=== PATIENT | male | born 1940 | race Caucasian/White ===

== ENCOUNTER 2016-08-04 09:55 | Day surgery (SDC) | payer MEDICARE, BC ==
[~2016-08-04] VITALS: Ht 180.3 cm; Wt 69.4 kg
[~2016-08-04 09:55] MED LIST: 00186-0372-20 IH; ALBUTEROL0.83 MG/ML IH; ALEVE 220MG220 MG PO; ALTACE 10MG TAB10 MG PO; ASPIRIN E.C. 8181 MG PO; BACTRIM DS 8001 TAB PO; BYSTOLIC10 MG PO; CARDIZEM 60MG T60 MG PO; CARDIZEM 90MG T90 MG PO; CIPRO 500MG TA500 MG PO; CLONAZEPAM1 M1 PO; COMBIVENT INH14.7 GM IH; DALIRESP500 MCG PO; DIGITEK0.125 MG PO; FLOMAX 0.40.4 MG/CAP PO; IBUPROFEN200 M1 PO; LASIX 20MG TABL20 MG PO; LEVAQUIN 750MG750 M1 PO; LIPITOR 80MG80 MG PO; LIPITOR20 MG PO; MOTRIN 200200 MG/TAB PO; MUCINEX 60600 MG/TA1; MUCINEX600 M1 PO; MULTIPLE VITAMI1 CAP PO; OSTEO-BI-FLEX 21 TAB PO; PLAVIX 75MG TAB75 MG PO; PREDNISONE20 MG PO; PROAIR HFA0.09 MG/AC IH; SPIRIVA18 MCG IH; THEO-DUR 3300 MG/TAB PO; THEOCAP200 MG PO; TRANDATE300 MG PO; TYLENOL 325MG325 MG PO; VITAMIN B650 MG PO; XARELTO10 MG PO; ZANTAC 150MG T150 MG PO
[2016-08-04 11:19] VITALS: BP 151/98; PULSE 66; TEMP 97.9
[2016-08-04] MEDS ORDERED: MUCINEX 60600 MG/TA1 PO (11:35)
[2016-08-04] MEDS ORDERED: SPIRIVA RE2.5 MCG/Ac IH (11:38)
[2016-08-04] MEDS ORDERED: ALBUTEROL0.83 MG/ML IH (11:42)
[2016-08-04] MEDS ORDERED: BROVANA15 MCG/2 M IH (11:42)
[2016-08-04] MEDS ORDERED: ATROVENT I0.2 MG/1 M IH (11:42)
[2016-08-04] MEDS ORDERED: PULMICORT0.5 MG/2 M IH (11:43)
[2016-08-04] MEDS ORDERED: KLONOPIN 0.5MG0.5 MG PO (11:44)
[2016-08-04] MEDS ORDERED: BENADRYL25 M2 PO (11:45)
[2016-08-04] MEDS ORDERED: TYLENOL 500MG500 MG PO (11:45)
[2016-08-04 13:20] VITALS: BP 115/68; PULSE 58; TEMP 98
[2016-08-04 13:35] VITALS: BP 105/58; PULSE 60
[2016-08-04 13:50] VITALS: BP 130/65; PULSE 53
[2016-08-04 14:05] VITALS: BP 119/70; PULSE 56
== END 2016-08-04 15:20 | disposition home or self-care (01) ==
LOC: SDCO 09:55
DX: K21.0 Gastro-esophageal reflux disease with esophagitis (principal); K29.80 Duodenitis without bleeding; D12.2 Benign neoplasm of ascending colon; D12.5 Benign neoplasm of sigmoid colon; K55.20 Angiodysplasia of colon without hemorrhage; K57.30 Diverticulosis of large intestine without perforation or abscess without bleeding; R19.5 Other fecal abnormalities; E78.00 Pure hypercholesterolemia, unspecified; Z79.899 Other long term (current) drug therapy; Z79.02 Long term (current) use of antithrombotics/antiplatelets; Z79.82 Long term (current) use of aspirin
CPT/HCPCS: J2250; J3010; J7030

== ENCOUNTER 2018-07-18 19:30 | Inpatient (IN) | payer MEDICARE, BC ==
[~2018-07-18] VITALS: Ht 182.9 cm; Wt 67.1 kg
[~2018-07-18 19:30] MED LIST changes: +ATROVENT I0.2 MG/1 M IH; +BENADRYL25 M2 PO; +BROVANA15 MCG/2 M IH; +COMBIRESP IH; +KLONOPIN 0.5MG0.5 MG PO; +MUCINEX 60600 MG/TA1 PO; +PULMICORT0.5 MG/2 M IH; +SPIRIVA RE2.5 MCG/Ac IH; +TYLENOL 500MG500 MG PO
[2018-07-18 20:03] VITALS: BP 142/77; PULSE 69; TEMP 97.9
--- NOTE | 2018-07-18 23:19 | NUR ---
Completed assessment and admission on patient; PT denies pain or SOB at time of assessment. Minor skin issues found on right landaverde from unknown healing scab. PT A&Ox3, lung CTA with bilateral diminished bases; baseline 3L of O2 via NC. SBA for toileting; PT utilizing urinal per preference. 20G RFA IV saline locked. Last BM reported as 07/17/2018. PT denied need for medication tonight, as he stated that he believes that the medication was already administered prior to arrival. TELE in place on patient; HX: Rate control AFib, COPD, HTN, anxiety, stent placement (coronary and iliac); Heart cath scheduled for 07/19/2018 at unknown time. PT denies pain or further concerns at time of exit. Call light placed within reach in bed; Will continue to monitor. CDA
[2018-07-19] VITALS (16 sets, daily range): BP systolic 126–158; BP diastolic 53–87; PULSE 56–70; TEMP 97.4–98.5
[2018-07-19 06:12] LABS: BASO % 0.1 % (0.0-2.0); GRAN # 11.7 (1.4-6.5); GRAN % 89.4 % (42.2-75.2); HEMATOCRIT 42.6 % (42.0-52.0); HEMOGLOBIN 13.4 g/dl (13.5-18.0); LYMPH # 0.3 (1.2-3.4); LYMPH % 2.6 % (20.0-51.0); MEAN CELL VOLUME 88 fl (80.0-100.0); MEAN CORPUSCULAR HEMOGLOBIN 28 pg (27.0-31.0); MEAN CORPUSCULAR HGB CONC 32 g/dl (33.0-37.0); MEAN PLATELET VOLUME 9.3 fl (7.4-10.4); MONO % 7.4 % (1.7-9.3); PLATELET COUNT 294 K/mm3 (130-400); RED BLOOD COUNT 4.84 M/mm3 (4.20-5.60); REDCELL DISTRIBUTION WIDTH-CV 15.7 % (11.5-14.5)
[2018-07-19 06:22] LABS: CALCIUM 8.5 mg/dL (8.4-10.2); CREATININE, serum 1.12 mg/dL (0.66-1.25); POTASSIUM 4.7 mmol/L (3.4-5.0)
[2018-07-19 06:29] LABS: THEOPHYLLINE 14.4 ug/mL (10.0-20.0)
[2018-07-19 06:43] LABS: TROPONIN-I 0.165 ng/mL (0.000-0.034)
[2018-07-19 06:44] LABS: DIGOXIN 1.1 ng/mL (0.8-2.0)
--- NOTE | 2018-07-19 07:12 | NUR ---
PT tolerated medications and treatments well; PT denied further needs; PT planned for heart cath in AM; Call light placed within reach; Report given to GINA Sneed.
--- NOTE | 2018-07-19 07:30 | NUR ---
Assessment complete. Pt is AXO X3, denies having any pain at this time. Breathing is even and unlabored on 3L via NC. Tele on. LF INT flushes easily, remains free of complications, and is CDI. Pt is NPO for heart catheterization today. Pt is sitting up in the bed resting quietly at this time and he denies further needs. Call light within reach, will continue to monitor.
--- NOTE | 2018-07-19 08:55 | NUR ---
ALL MEDS GIVEN WITH VERBAL ORDER FROM MD. SEE MERGE FOR ADMIN TIMES. ALLENS TEST POSITIVE.
--- NOTE | 2018-07-19 12:40 | NUR ---
First visit from the commuter pilot. No needs right now.
--- NOTE | 2018-07-19 13:21 | NUR ---
SW and SW student attended clinical rounding and met with patient to discuss discharge planning. Patient lives with his and daughter in [place]. 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 Patient has home 02 but doesn't use it consistently. Patient could possibly dc home today with no unmet discharge needs.
[2018-07-19] MEDS ORDERED: MEDROL 4MG DOSPA4 MG PO (16:45)
[2018-07-19] MEDS ORDERED: CORDARONE200 MG/TAB PO (16:46)
[2018-07-19] MEDS ORDERED: ELIQUIS 5MG PO (16:46)
[2018-07-19] MEDS ORDERED: RANEXA 500MG T500 MG PO (16:46)
[2018-07-19] MEDS ORDERED: IMDUR 30MG30 MG/TAB PO (16:47)
[2018-07-19] MEDS ORDERED: CRESTOR 10MG10 MG PO (16:48)
--- NOTE | 2018-07-19 18:50 | NUR ---
Pt discharged at this time. LF INT discontinued with the catheter tip intact. R radial cath site has remained free of complications. Education provided and reviewed. Pt and his both verbalize understanding. Pt escourted out via WC with tech. Marcia
== END 2018-07-19 18:58 | disposition home or self-care (01) | DRG 281 ==
LOC: MEDICAL 19:30
PROVIDERS: Nurse Practitioner; ADMIT Internal Medicine Cardiovascular Disease
PROC: B2111ZZ Fluoroscopy of Multiple Coronary Arteries using Low Osmolar Contrast (ICD-10-PCS; principal; 2018-07-19)
PROC: B2151ZZ Fluoroscopy of Left Heart using Low Osmolar Contrast (ICD-10-PCS; 2018-07-19)
PROC: 4A023N7 Measurement of Cardiac Sampling and Pressure, Left Heart, Percutaneous Approach (ICD-10-PCS; 2018-07-19)
DX: I21.4 Non-ST elevation (NSTEMI) myocardial infarction (principal); I50.22 Chronic systolic (congestive) heart failure; I25.10 Atherosclerotic heart disease of native coronary artery without angina pectoris; I11.0 Hypertensive heart disease with heart failure; J44.9 Chronic obstructive pulmonary disease, unspecified; E78.5 Hyperlipidemia, unspecified; Z95.5 Presence of coronary angioplasty implant and graft; I73.9 Peripheral vascular disease, unspecified; Z95.820 Peripheral vascular angioplasty status with implants and grafts; I48.91 Unspecified atrial fibrillation; D50.9 Iron deficiency anemia, unspecified; F17.210 Nicotine dependence, cigarettes, uncomplicated
CPT/HCPCS: A4216; G0378; J0696; J1644; J2060; J2920; J3010; J7050; Q9967

== ENCOUNTER → 2018-08-07 | Outpatient (CLI) | payer MEDICARE, BC ==
[~2018-08-07] MED LIST changes: +CORDARONE200 MG/TAB PO; +CRESTOR 10MG10 MG PO; +ELIQUIS 5MG PO; +IMDUR 30MG30 MG/TAB PO; +MEDROL 4MG DOSPA4 MG PO; +RANEXA 500MG T500 MG PO
== END ==
LOC: COL.RAD 13:44
DX: I73.9 Peripheral vascular disease, unspecified (principal); I71.4 Abdominal aortic aneurysm, without rupture; I74.5 Embolism and thrombosis of iliac artery; I74.3 Embolism and thrombosis of arteries of the lower extremities; Z95.820 Peripheral vascular angioplasty status with implants and grafts
CPT/HCPCS: Q9967

== ENCOUNTER 2018-11-15 10:18 | Day surgery (SDC) | payer MEDICARE, BC ==
[~2018-11-15] VITALS: Ht 182.9 cm; Wt 66.4 kg
[2018-11-15 10:43] VITALS: BP 101/68; PULSE 73; TEMP 97.6
[2018-11-15] MEDS ORDERED: PROSCAR 5MG5 MG PO (11:19)
[2018-11-15] MEDS ORDERED: ASPIRIN 81M81 MG/TA2 PO (11:19)
[2018-11-15] MEDS ORDERED: BROVANA15 MCG/2 M IH (11:20)
[2018-11-15] MEDS ORDERED: TOPROL XL 25MG25 MG PO (11:20)
[2018-11-15] MEDS ORDERED: LASIX 20MG TABL20 MG PO (11:20)
[2018-11-15 12:35] VITALS: BP 95/52; PULSE 70; TEMP 97.3
--- NOTE | 2018-11-15 12:35 | NUR ---
Pt arrived to room 8 from Endo procedure. Pt drowsy, orientedx3. Pt walked to chair with x2 assist, unsteady gait. Pt's family in room. Pt denies any pain or nausea. Food and drink offered. Pt refuses at this time. Call light in reach.
[2018-11-15 12:50] VITALS: BP 107/90; PULSE 70
[2018-11-15 13:05] VITALS: BP 120/65; PULSE 68
[2018-11-15 13:20] VITALS: BP 122/65; PULSE 62
--- NOTE | 2018-11-15 13:50 | NUR ---
Discussed discharge instructions, med list and procedure information with pt and pt's . Answered all questions to pt's satisfaction. Will send Dr Melgar's office a copy of the EGD and colonoscopy report per pt request. Pt signed discharged paperwork.
--- NOTE | 2018-11-15 14:00 | NUR ---
Pt discharged from [facility]. Pt left unit via wheelchair to private vehicle driven by spouse.
[2018-11-15 14:13] VITALS: BP 107/53; PULSE 65
== END 2018-11-15 14:00 | disposition home or self-care (01) ==
LOC: SDCO 10:18
DX: K22.70 Barrett's esophagus without dysplasia (principal); K63.5 Polyp of colon; D50.9 Iron deficiency anemia, unspecified; K21.9 Gastro-esophageal reflux disease without esophagitis; D64.9 Anemia, unspecified; F41.9 Anxiety disorder, unspecified; F32.9 Major depressive disorder, single episode, unspecified; E78.00 Pure hypercholesterolemia, unspecified; K92.1 Melena; I25.10 Atherosclerotic heart disease of native coronary artery without angina pectoris; I25.2 Old myocardial infarction; I10 Essential (primary) hypertension; J44.9 Chronic obstructive pulmonary disease, unspecified; I48.91 Unspecified atrial fibrillation; M19.90 Unspecified osteoarthritis, unspecified site; G89.29 Other chronic pain; Z86.010 Personal history of colon polyps; Z79.82 Long term (current) use of aspirin; Z87.891 Personal history of nicotine dependence; Z88.5 Allergy status to narcotic agent; Z88.6 Allergy status to analgesic agent; Z88.1 Allergy status to other antibiotic agents; Z88.8 Allergy status to other drugs, medicaments and biological substances; Z98.52 Vasectomy status; Z79.01 Long term (current) use of anticoagulants; Z99.81 Dependence on supplemental oxygen
CPT/HCPCS: J2250; J2704; J7030

== ENCOUNTER 2019-02-27 08:55 | Outpatient (CLI) | payer MEDICARE, BC ==
[~2019-02-27] VITALS: Ht 182.9 cm; Wt 66.1 kg
[2019-02-27] VITALS (16 sets, daily range): BP systolic 131–170; BP diastolic 72–92; PULSE 72–103; TEMP 98
[~2019-02-27 08:55] MED LIST changes: +ASPIRIN 81M81 MG/TA2 PO; +PACERONE200 MG PO; +PROSCAR 5MG5 MG PO; +PROTONIX 40MG T40 MG PO; +TOPROL XL 25MG25 MG PO
--- NOTE | 2019-02-27 10:30 | NUR ---
pt to ct per wheelchair. Pt positioned prone on table. Monitors applied and O2 on at 3l/nc.
--- NOTE | 2019-02-27 10:40 | NUR ---
Dr Luevano into room and talks with pt regarding procedure.
--- NOTE | 2019-02-27 10:51 | NUR ---
Specimen obtained by Dr Luevano and placed in formalin. Specimen labeled.
--- NOTE | 2019-02-27 11:10 | NUR ---
Transferred from Radiology by cart. Alert and oriented. Bandaid to right back CD&I. VSS. O2 at 97 % on 3 liters via nasal cannula
--- NOTE | 2019-02-27 13:46 | NUR ---
Dr. Luevano ok to discharge
--- NOTE | 2019-02-27 13:50 | NUR ---
INT discontinued intact. Dr. Luevano in to give discharge instructions.
--- NOTE | 2019-02-27 14:05 | NUR ---
Transferred to private car by priti
== END 2019-02-27 14:05 | disposition home or self-care (01) ==
LOC: COL.RAD 08:55
DX: R91.1 Solitary pulmonary nodule (principal)
CPT/HCPCS: J2250; J3010

== ENCOUNTER 2019-07-03 09:01 | Outpatient (RCR) | payer MEDICARE, BC ==
[~2019-07-03] VITALS: Ht 182.9 cm; Wt 65.7 kg
[2019-07-03] MEDS ORDERED: ELIQUIS 5MG PO (09:44)
[2019-07-03 09:45] VITALS: BP 98/44; PULSE 58; TEMP 98
[2019-07-03] MEDS ORDERED: TYLENOL 500MG500 MG PO (10:10)
[2019-07-03 10:21] VITALS: BP 88/38; PULSE 55; TEMP 98.3
[2019-07-03 10:44] VITALS: BP 84/34; PULSE 56; TEMP 98.4
[2019-07-03 10:59] VITALS: BP 88/38; PULSE 55; TEMP 97.5
[2019-07-03 11:30] VITALS: BP 99/45; PULSE 61; TEMP 98.3
[2019-07-03 12:20] VITALS: BP 89/53; PULSE 62; TEMP 98
== END 2019-07-03 13:30 | disposition home or self-care (01) ==
LOC: EUO 09:01
DX: Z01.89 Encounter for other specified special examinations (principal)
CPT/HCPCS: J7050; P9016

== ENCOUNTER 2019-08-12 12:18 | Inpatient (IN) | payer MEDICARE, BC ==
[~2019-08-12] VITALS: Ht 182.9 cm; Wt 54.9 kg
[2019-08-12 13:03] LABS: BASO % 0.4 % (0.0-2.0); EOS # 0.1 (0.0-0.7); EOS % 1.5 % (0-4.0); GRAN # 5.7 (1.4-6.5); GRAN % 78.3 % (42.2-75.2); HEMATOCRIT 27.1 % (42.0-52.0); HEMOGLOBIN 8.2 g/dl (13.5-18.0); LYMPH # 0.8 (1.2-3.4); LYMPH % 10.8 % (20.0-51.0); MEAN CELL VOLUME 88 fl (80.0-100.0); MEAN CORPUSCULAR HEMOGLOBIN 27 pg (27.0-31.0); MEAN CORPUSCULAR HGB CONC 30 g/dl (33.0-37.0); MONO # 0.6 (0.1-0.6); MONO % 8.4 % (1.7-9.3); PLATELET COUNT 434 K/mm3 (130-400); RED BLOOD COUNT 3.09 M/mm3 (4.20-5.60); REDCELL DISTRIBUTION WIDTH-CV 18.7 % (11.5-14.5)
[2019-08-12 13:10] LABS: ALBUMIN 3.6 gm/dL (3.5-5.0); BILIRUBIN,TOTAL 0.8 mg/dL (0.0-1.0); CREATININE, serum 1.84 (0.66-1.25); POTASSIUM 3.3 mmol/L (3.4-5.0); TOTAL PROTEIN 6.5 gm/dL (6.4-8.2)
[2019-08-12 14:05] LABS: INR 2.4 (0.8-3.0); PROTHROMBIN TIME 29.1 SECONDS (9.7-12.8)
[2019-08-12 17:29] VITALS: BP 132/50; PULSE 64; TEMP 97.8
[2019-08-12] MEDS ORDERED: LOPRESSOR 225 MG/TAB PO (19:24)
[2019-08-12 20:00] VITALS: BP 124/48; PULSE 88; TEMP 98.6
[2019-08-13] VITALS (13 sets, daily range): BP systolic 102–135; BP diastolic 43–56; PULSE 58–92; TEMP 97.7–98.3
--- NOTE | 2019-08-13 06:56 | NUR ---
Patient has been resting in bed this shift, no complaints of pain. Patient does have multiple bruises on all extremeties. Patient lung sounds are clear, but diminished. Patient complains of shortness of air on exertion. Patient's O2 sats had been 97% on room air, but patient reported he is on 3-4L of oxygen at home. Educated patient on use of oxygen with COPD history. Patient did not require any medication for nausea this shift. Patient was able to tolerate some juice and pudding.
[2019-08-13 08:00] LABS: BASO % 0.4 % (0.0-2.0); EOS # 0.2 (0.0-0.7); EOS % 4.3 % (0-4.0); GRAN # 3.4 (1.4-6.5); GRAN % 73.3 % (42.2-75.2); LYMPH # 0.5 (1.2-3.4); LYMPH % 10.2 % (20.0-51.0); MEAN CELL VOLUME 89 fl (80.0-100.0); MEAN CORPUSCULAR HGB CONC 30 g/dl (33.0-37.0); MEAN PLATELET VOLUME 9.4 fl (7.4-10.4); MONO # 0.5 (0.1-0.6); MONO % 10.7 % (1.7-9.3); PLATELET COUNT 348 K/mm3 (130-400); RED BLOOD COUNT 2.43 M/mm3 (4.20-5.60); REDCELL DISTRIBUTION WIDTH-CV 18.8 % (11.5-14.5)
[2019-08-13 08:09] LABS: ALBUMIN 2.6 gm/dL (3.5-5.0); BILIRUBIN,TOTAL 0.4 mg/dL (0.0-1.0); CREATININE, serum 1.52 (0.66-1.25); HEMATOCRIT 21.5 % (42.0-52.0); HEMOGLOBIN 6.5 g/dl (13.5-18.0); MAGNESIUM 1.9 mg/dL (1.6-2.3); MEAN CORPUSCULAR HEMOGLOBIN 27 pg (27.0-31.0); POTASSIUM 4.1 mmol/L (3.4-5.0)
--- NOTE | 2019-08-13 11:03 | NUR ---
RECEIVED MORNING REPORT ON THE PATIENT. VERIFYIED THE POTASSIUM AND THE PATIENT DOES NOT NEED IT REPLACED THIS MORNING. HGB WAS AT 6.5 AND THE PATIENT WILL RECIEVE A UNIT OF BLOOD AND THEN RECHECK BLOOD LEVELS. PATIENT IS NOT SHORT OF BREATH, NAUSEA, VOMITING, OR DIZZY. PATIENT IS HAVING A HARD TIME REMEMBERING "HEMOGLOBIN" AND "6.5" SO IT WAS WROTE DOWN FOR HIM. CALL LIGHT WITHIN REACH WELL HIS OTHER NEEDS
--- NOTE | 2019-08-13 12:03 | NUR ---
SW met with the patient to discuss discharge plan. The patient lives in [place] with his , Ella (ph#[phone]). He reports independence with ADLs and has a cane, walker, and home oxygen from [facility]. The patient's PCP is Dr. Victor Hugo Lassiter and he receives his medications at [facility] in [place]. He reports no difficulties obtaining his meds. The patient's advanced directives are in EMR. His DPOA-HC is his . The patient plans to return home with his upon discharge. PT/OT have been ordered. SW to continue to follow.
--- NOTE | 2019-08-13 16:01 | NUR ---
PATIENT IS RESTING IN BED AT THIS TIME. BLOOD TRANSFUSION WENT WELL WITH NO DIFFICULITIES. PATIENT HAS HIS PHONE AND WILL UPDATE HIS FAMILY FROM TIME TO TIME. PATIENT HAS NOT HAD ANY COMPLAINTS TODAY BESIDES BEING HOT AND THEN COLD AND JUST WANTING HIS BLANKETS REARRANGED. HE HAS BEEN STABLE TODAY.
--- NOTE | 2019-08-13 16:11 | NUR ---
IV ON THE LEFT FOREARM WAS DISCONTINUED BECAUSE OF BLOOD UNDER THE DRESSING AND CONTINUING TO LEAK. PATIENT TOLERATED IT FINE AND THE TIP WAS INTACT
--- NOTE | 2019-08-13 17:56 | NUR ---
PATIENT HAS HAD A GOOD DAY. HE DID RECIEVE A UNIT OF BLOOD. ONLY USED THE URINAL ONE TIME FOR ME THIS SHIFT. HGB WAS LOW SO IT WAS REPLACED WITH ONE UNIT OF BLOOD. POTASSIUM WAS OK SO IT WAS NOT REPLACED TODAY. IS AT BEDSIDE RIGHT NOW WITH THE PATIENT. HIS CURRENT IV IS IN HIS RIGHT FOREARM AND IT WORKING GREAT, I HAD GREAT BLOOD RETURN WITH IT. PATIENT DID DRINK A GLASS OF WATER TODAY AND ANOTHER WAS GIVEN TO HIM. VITALS HAVE BEEN STABLE TODAY WITH NO ISSUES. CALL LIGHT IS IN REACH.
--- NOTE | 2019-08-13 20:00 | NUR ---
Received report from GINA Fishman and GINA Krishna. Assessment complete. Family at bedside. Denies any pain, discomfort, or N/V at this time. Meds administered. IV to RF intact with fluids infusing, dressing CDI. On 1LO2 NC, SPo2 99%. Denies SOB. Urinal at bedside. Needs attended too. Call light within reach.
[2019-08-14 04:41] VITALS: BP 160/58; PULSE 60; TEMP 98.5
--- NOTE | 2019-08-14 06:14 | NUR ---
Pt made no complaints during this shift. Slept through the night. Meds administered. Call light within reach.
[2019-08-14 06:26] LABS: CALCIUM 7.9 mg/dL (8.4-10.2); CREATININE, serum 1.27 (0.66-1.25); POTASSIUM 4.3 mmol/L (3.4-5.0)
--- NOTE | 2019-08-14 07:08 | NUR ---
Report given to GINA Robbins.
[2019-08-14 07:57] VITALS: BP 144/63; PULSE 60; TEMP 98
--- NOTE | 2019-08-14 08:10 | NUR ---
Assessment charted. Patient A&Ox3. Reporting pain in abdomen 07/04. VSS1.5L NC O@, no reported SOB . IV CDI, fluids infusing. No further needs expressed from patient. Call light within reach
[2019-08-14 08:17] LABS: BASO % 0.4 % (0.0-2.0); EOS # 0.2 (0.0-0.7); EOS % 3.6 % (0-4.0); GRAN # 3.5 (1.4-6.5); GRAN % 71.3 % (42.2-75.2); LYMPH # 0.6 (1.2-3.4); LYMPH % 12.6 % (20.0-51.0); MEAN CELL VOLUME 88 fl (80.0-100.0); MEAN CORPUSCULAR HGB CONC 31 g/dl (33.0-37.0); MEAN PLATELET VOLUME 9.1 fl (7.4-10.4); MONO # 0.6 (0.1-0.6); MONO % 11.3 % (1.7-9.3); PLATELET COUNT 345 K/mm3 (130-400); RED BLOOD COUNT 2.75 M/mm3 (4.20-5.60); REDCELL DISTRIBUTION WIDTH-CV 18.7 % (11.5-14.5)
[2019-08-14 08:18] LABS: HEMATOCRIT 24.2 % (42.0-52.0); HEMOGLOBIN 7.5 g/dl (13.5-18.0); MEAN CORPUSCULAR HEMOGLOBIN 27 pg (27.0-31.0)
[2019-08-14] MEDS ORDERED: ELIQUIS 5MG PO (09:22)
--- NOTE | 2019-08-14 11:00 | NUR ---
SW met with the patient to review discharge plan and to discussed home health services. The patient reports that the plans to return home with his . He was not interested in any home health at this time. The patient is to discharge back home with his today, 08/14. No additional needs at this time.
[2019-08-14 12:16] VITALS: BP 119/54; PULSE 58; TEMP 98.3
--- NOTE | 2019-08-14 13:30 | NUR ---
Discharge paperwork reviewed with patient. Patient verbalized an understanding to follow doctors orders. IV removed, tip intact, gauze and coban covering. assisted patient into street clothes. Patient has portable O2 tank in car, refused O2 from room to vehicle. No further needs expressed from patient. Patient transfered by nursing staff to vehicle by wheelchair.
== END 2019-08-14 13:30 | disposition home or self-care (01) | DRG 682 ==
LOC: COL.ER 12:18 → MEDICAL 15:47
PROVIDERS: Family Medicine; Nurse Practitioner Family; Physician Assistant; ADMIT Hospitalist
DX: N17.9 Acute kidney failure, unspecified (principal); E43 Unspecified severe protein-calorie malnutrition; J96.11 Chronic respiratory failure with hypoxia; E87.2 Acidosis; E87.6 Hypokalemia; E86.0 Dehydration; J44.9 Chronic obstructive pulmonary disease, unspecified; R62.51 Failure to thrive (child); I48.91 Unspecified atrial fibrillation; D50.9 Iron deficiency anemia, unspecified; F32.9 Major depressive disorder, single episode, unspecified; I25.10 Atherosclerotic heart disease of native coronary artery without angina pectoris; D64.9 Anemia, unspecified; I71.4 Abdominal aortic aneurysm, without rupture; I73.9 Peripheral vascular disease, unspecified; G25.81 Restless legs syndrome; Z85.118 Personal history of other malignant neoplasm of bronchus and lung; Z79.02 Long term (current) use of antithrombotics/antiplatelets
CPT/HCPCS: 99222-AI; 99231-AI; 99239; J2405; J3480; J7030; P9016

== ENCOUNTER 2019-11-17 17:54 | Outpatient (CLI) | payer MEDICARE, BC ==
[~2019-11-17] VITALS: Ht 182.9 cm; Wt 50.0 kg
[~2019-11-17 17:54] MED LIST changes: +LOPRESSOR 225 MG/TAB PO
[2019-11-18] VITALS (10 sets, daily range): BP systolic 133–166; BP diastolic 56–70; PULSE 54–72; TEMP 98–98.7
== END 2019-11-18 12:15 | disposition home or self-care (01) ==
LOC: EUO 17:54 → ZCOL.LAB 17:54 → EUO 11-18 12:15
DX: C34.10 Malignant neoplasm of upper lobe, unspecified bronchus or lung (principal); D50.9 Iron deficiency anemia, unspecified
CPT/HCPCS: J7050; P9016

== ENCOUNTER → 2019-11-28 | Outpatient (CLI) | payer MEDICARE, BC ==
[2019-11-28 14:07] LABS: ARTERIAL BLD GAS O2 SATURATION 95.4 % (92-100); ARTERIAL BLD GAS TCO2 CT 26.8; ARTERIAL BLOOD GAS BASE EXCESS 1.1 (-2-2); ARTERIAL BLOOD GAS HCO3 25.5 meq/L (22-26); ARTERIAL BLOOD GAS PCO2 39.9 mmHg (35-45); ARTERIAL BLOOD GAS PO2 68.2 mmHg (80-100); ARTERIAL BLOOD GAS pH 7.42 (7.35-7.45)
== END ==
LOC: COL.PUL 11-20 13:00
PROVIDERS: Internal Medicine Pulmonary Disease
DX: R06.02 Shortness of breath (principal)

== ENCOUNTER → 2021-04-01 | Day surgery (SDC) | payer MEDICARE, BC ==
[~2021-04-01] VITALS: Ht 182.9 cm; Wt 70.0 kg
[~2021-04-01] MED LIST changes: +ENTRESTO 24 MG1 EACH PO
[2021-04-01 07:44] VITALS: BP 150/67; PULSE 80; TEMP 98
[2021-04-01 09:10] VITALS: BP 127/87; PULSE 85; TEMP 98
[2021-04-01 09:30] VITALS: BP 130/59; PULSE 85
--- NOTE | 2021-04-01 09:36 | NUR ---
PT UP TO THE BATHROOM AND PASSED URINE AND STOOL. PT ALERT AND ORIENTATED TO TO PLACE, NAME AND TIME. LUNGS CLEAR AND COARSE, DIMINISHED BASES. REQUIRES 2 PERSON ASSIST WHEN WALKING. HRR, BOWEL SOUNDS PRESENT. O2 AT 4L AND RUNNING 100% O2. WILL CONTINUE TO MONITOR PROGRESS.
--- NOTE | 2021-04-01 09:41 | NUR ---
CBC ORDERED STAT PER DR WOODWARD AND ORDERS PLACED. PT REQUESTS COFFEE AND WATER AND BLUEBERRY MUFFIN. WILL CONT TO MONITOR PROGRESS.
[2021-04-01 09:45] VITALS: BP 129/69; PULSE 79
--- NOTE | 2021-04-01 09:52 | NUR ---
PT HAVING CBC DRAWN. PT CONTINUES ON O2 AT 3L.
[2021-04-01 10:00] VITALS: BP 143/105; PULSE 87
[2021-04-01 10:01] LABS: BASO % 0.6 % (0.0-2.0); EOS # 0.1 K/mm3 (0.0-0.7); EOS % 1.1 % (0-4.0); GRAN # 4.3 K/mm3 (1.4-6.5); GRAN % 69.4 % (42.2-75.2); HEMOGLOBIN 10.8 g/dl (13.5-18.0); LYMPH # 1.1 K/mm3 (1.2-3.4); LYMPH % 17.6 % (20.0-51.0); MEAN CELL VOLUME 93 fl (80.0-100.0); MEAN CORPUSCULAR HEMOGLOBIN 30 pg (27.0-31.0); MEAN CORPUSCULAR HGB CONC 32 g/dl (33.0-37.0); MEAN PLATELET VOLUME 8.9 fl (7.4-10.4); MONO # 0.7 K/mm3 (0.1-0.6); MONO % 10.7 % (1.7-9.3); PLATELET COUNT 236 K/mm3 (130-400); RED BLOOD COUNT 3.66 M/mm3 (4.20-5.60); REDCELL DISTRIBUTION WIDTH-CV 14.9 % (11.5-14.5)
[2021-04-01 10:02] LABS: HEMATOCRIT 34.2 % (42.0-52.0)
[2021-04-01 10:15] VITALS: BP 141/67; PULSE 86
--- NOTE | 2021-04-01 14:30 | NUR ---
PT RETURNED FROM PROCEDURE INTO BAY #3. PT ALERT TO NAME, PLACE AND TIME. LUNGS CLEAR AND COARSE, HRR, BOWEL SOUNDS PRESENT AND HYPOACTIVE. DRESSINGS TO BOTH FEET ARE INTACT AND DRY. AT BEDSIDE, WILL CONT TO MONITOR PROGRESS.
--- NOTE | 2021-04-01 14:35 | NUR ---
PT REQUESTS COFFEE, WATER AND BLUEBERRY MUFFIN. AND DENIES NAUSEA AND VOMITING AT THIS TIME, WILL CONT TO MONITOR.
--- NOTE | 2021-04-01 14:40 | NUR ---
PT TOLERAING FOOD AND FLUIDS. O2 AT 3 1/2 LITERS. DENIES PAIN OR NAUSEA.
--- NOTE | 2021-04-01 14:46 | NUR ---
IV WAS DC'D TO RIGHT WRIST. PT WAS DC'D PER WC TO PT FAMILY VEHICLE. DRIVNG THE CAR.
== END ==
LOC: SDCO 06:49
PROVIDERS: Internal Medicine Gastroenterology
DX: R19.5 Other fecal abnormalities (principal); K64.1 Second degree hemorrhoids; D50.0 Iron deficiency anemia secondary to blood loss (chronic); J44.9 Chronic obstructive pulmonary disease, unspecified; I25.10 Atherosclerotic heart disease of native coronary artery without angina pectoris; M48.061 Spinal stenosis, lumbar region without neurogenic claudication; E78.00 Pure hypercholesterolemia, unspecified; K59.00 Constipation, unspecified; I50.9 Heart failure, unspecified; I11.0 Hypertensive heart disease with heart failure; I48.91 Unspecified atrial fibrillation; E78.5 Hyperlipidemia, unspecified; I25.2 Old myocardial infarction; M19.90 Unspecified osteoarthritis, unspecified site; G89.29 Other chronic pain; M54.9 Dorsalgia, unspecified; F17.210 Nicotine dependence, cigarettes, uncomplicated; F32.9 Major depressive disorder, single episode, unspecified; F41.9 Anxiety disorder, unspecified; Z79.82 Long term (current) use of aspirin; Z79.899 Other long term (current) drug therapy; Z79.01 Long term (current) use of anticoagulants; Z80.9 Family history of malignant neoplasm, unspecified
CPT/HCPCS: J2704; J7030